=== PATIENT | male | born 1940 | race Caucasian/White ===

== ENCOUNTER 2022-03-09 16:37 | Outpatient (CLI) | payer MEDICARE ==
--- NOTE | 2022-03-10 00:02 | XRAY Report ---
PROCEDURE: Knee 3 View LT INDICATIONS: PAIN OF LEFT KNEE JOINT TECHNIQUE: 3 views of the left knee(s) were acquired. COMPARISON: None. FINDINGS: Bones: No fractures or dislocations. Moderate tricompartmental osteoarthritis is seen more prominen t in patellofemoral compartment and medial femoral tibial compartment with joint space narrowing, sub chondral sclerosis and prominent marginal osteophyte formation. No patellar subluxation. No suspiciou s bony lesions. Soft tissues: Moderate suprapatellar joint effusion is seen. Oval calcifications are noted in early learning teacher ior aspect of femoral tibial compartment and MA represent small loose bodies. IMPRESSION: Moderate tricompartment osteoarthritis with prominent in medial femoral tibial compartme nt and patellofemoral compartment. Moderate joint effusion. No fracture or dislocation. Possible loos e bodies in posterior aspect of femoral tibial joint. Reviewed by: Maverick Brantley MD on 03/10/2022 12:00 AM PDT Approved by: Maverick Brantley MD on 03/10/2022 12:00 AM PDT Station ID: [id number]
== END 2022-03-09 16:38 | disposition home or self-care (01) ==
LOC: DI.S 16:37
PROVIDERS: ATTEND Registered Nurse
DX: M17.12 Unilateral primary osteoarthritis, left knee (principal); M25.462 Effusion, left knee